=== PATIENT | female | born 1950 | race Caucasian/White ===

== ENCOUNTER 2019-08-13 14:26 | Outpatient (CLI) | payer MEDICARE ==
[~2019-08-13 14:26] MED LIST: ESTR0.5T PO; MULT-658 PO; TRAZ50TA66 PO
[2019-08-13] MEDS ORDERED: CHOL10003 PO (15:01)
== END 2019-08-13 23:59 | disposition home or self-care (01) ==
LOC: STAR 14:26
PROVIDERS: ATTEND Obstetrics & Gynecology Female Pelvic Medicine and Reconstructive Surgery
DX: Z01.818 Encounter for other preprocedural examination (principal); N81.10 Cystocele, unspecified
CPT/HCPCS: 93005

== ENCOUNTER 2019-08-23 08:47 | Day surgery (SDC) | payer MEDICARE ==
[~2019-08-23] VITALS: Ht 170.2 cm; Wt 69.8 kg
[~2019-08-23 08:47] MED LIST changes: +BUPIVACAINE/PF-EPI 0.25% 1:200K ONE; +CHOL10003 PO; +NEOMY/POLYMYXIN B GU IRR. 1 ML ONE
[2019-08-23] MEDS ORDERED: LACTATED RINGERS 1,000 ML IV SCH (09:00)
[2019-08-23 09:11] VITALS: BP 124/54
[2019-08-23] MEDS ORDERED: ACETAMINOPHEN 500 MG TABLET PO ONE ×3 (09:30→10:30)
[2019-08-23] MEDS ORDERED: GABAPENTIN 300 MG CAPSULE PO ONE (10:30)
[2019-08-23] MEDS ORDERED: FENTANYL PF 100 MCG/2ML ONE ×2 (12:30→14:12)
[2019-08-23] MEDS ORDERED: MIDAZOLAM 1 MG/ML, 2ML ONE (12:30)
[2019-08-23] MEDS ORDERED: PROPOFOL 10 MG/ML, 20ML ONE (12:30)
[2019-08-23] MEDS ORDERED: LIDOCAINE-MPF 2% ,5ML ONE (12:31)
[2019-08-23] MEDS ORDERED: CEFAZOLIN 1,000 MG ONE ×2 (12:31)
[2019-08-23] MEDS ORDERED: ROCURONIUM 10MG/ML,5ML ONE (12:31)
[2019-08-23] MEDS ORDERED: ONDANSETRON 2MG/ML, 2ML ONE (12:31)
[2019-08-23] MEDS ORDERED: DEXAMETHASONE 4 MG/ML, 1ML ONE ×2 (12:31)
[2019-08-23] MEDS ORDERED: LORazepam 2 MG/ML, 1ML IVPush PRN (13:00)
[2019-08-23] MEDS ORDERED: ONDANSETRON 2MG/ML, 2ML IV PRN (13:00)
[2019-08-23] MEDS ORDERED: MEPERIDINE/PF 25MG/ML,1ML IVPush PRN (13:00)
[2019-08-23] MEDS ORDERED: OXYcodone 5 MG/5 ML ORAL.SOL UDC PO PRN (13:00)
[2019-08-23] MEDS ORDERED: hydrALAzine 20 MG/ML, 1ML IV PRN (13:00)
[2019-08-23] MEDS ORDERED: LABETALOL 5MG/ML, 20ML IV PRN (13:00)
[2019-08-23] MEDS ORDERED: HYDROmorphone 2 MG/ML, 1ML IVPush PRN (13:00)
[2019-08-23] MEDS ORDERED: SUCCINYLCHOLINE 20 MG/ML, 10ML ONE (13:07)
[2019-08-23] MEDS ORDERED: OXYcodone 5 MG/5 ML ORAL.SOL UDC ONE (14:12)
[2019-08-23] MEDS: FENTANYL PF 100 MCG/2ML IV PRN ×3 (14:15→14:40)
[2019-08-23] MEDS ORDERED: HYDROmorphone 1 MG/ML, 1ML INJ ONE (14:41)
== END 2019-08-23 16:55 | disposition home or self-care (01) ==
LOC: OUT 08:47
PROVIDERS: ATTEND Obstetrics & Gynecology Female Pelvic Medicine and Reconstructive Surgery
DX: N81.89 Other female genital prolapse (principal); N39.46 Mixed incontinence; N81.11 Cystocele, midline; N81.6 Rectocele; N81.5 Vaginal enterocele; R10.2 Pelvic and perineal pain; Z79.899 Other long term (current) drug therapy; Z88.2 Allergy status to sulfonamides; Z90.710 Acquired absence of both cervix and uterus; Z98.890 Other specified postprocedural states
CPT/HCPCS: 57265; 57282; 57288; C1771; J0330; J0690; J1100; J1170; J2250; J2405; J2704; J3010; J7120

== ENCOUNTER → 2020-10-04 | Outpatient (CLI) | payer MEDICARE ==
[~2020-10-04] MED LIST changes: +ALEN70TA77 PO; -BUPIVACAINE/PF-EPI 0.25% 1:200K ONE; +ESTR30CR VG; +MIRA25TA PO; -NEOMY/POLYMYXIN B GU IRR. 1 ML ONE
== END | disposition home or self-care (01) ==
LOC: STAR 10:22
PROVIDERS: ATTEND Obstetrics & Gynecology Female Pelvic Medicine and Reconstructive Surgery
DX: Z01.812 Encounter for preprocedural laboratory examination (principal); Z20.822 Contact with and (suspected) exposure to COVID-19; N39.3 Stress incontinence (female) (male); R10.2 Pelvic and perineal pain; N81.10 Cystocele, unspecified; N81.6 Rectocele
CPT/HCPCS: 93005; U0003

== ENCOUNTER 2020-10-09 09:58 | Day surgery (SDC) | payer MEDICARE ==
[~2020-10-09] VITALS: Ht 170.2 cm; Wt 66.1 kg
[~2020-10-09 09:58] MED LIST changes: +BUPIVACAINE/PF 0.25% ONE; +EPINEPHRINE 1 MG/ML, 1ML ONE; +NEOMY/POLYMYXIN B GU IRR. 1 ML ONE
[2020-10-09 10:33] VITALS: BP 123/80
[2020-10-09] MEDS ORDERED: CHLORHEXIDINE 15 ML UDC PO ONE (11:00)
[2020-10-09] MEDS ORDERED: LACTATED RINGERS 1,000 ML IV SCH (11:00)
[2020-10-09] MEDS ORDERED: FENTANYL PF 250 MCG/5ML ONE (11:47)
[2020-10-09] MEDS ORDERED: DEXAMETHASONE 4 MG/ML, 1ML ONE ×2 (11:50→12:14)
[2020-10-09] MEDS ORDERED: ROCURONIUM 10MG/ML,5ML ONE (11:50)
[2020-10-09] MEDS ORDERED: SUCCINYLCHOLINE 20 MG/ML, 10ML ONE (11:50)
[2020-10-09] MEDS ORDERED: PROPOFOL 10 MG/ML, 20ML ONE (11:50)
[2020-10-09] MEDS ORDERED: CEFAZOLIN 1,000 MG ONE ×2 (12:13→12:14)
[2020-10-09] MEDS ORDERED: NEOSTIGMINE 1 MG/ML, 10ML ONE (12:29)
[2020-10-09] MEDS ORDERED: hydrALAzine 20 MG/ML, 1ML IV PRN (12:30)
[2020-10-09] MEDS ORDERED: DIAZEPAM 5 MG/ML, 2ML IVPush PRN (12:30)
[2020-10-09] MEDS ORDERED: EPHEDRINE 50 MG/ML, 1ML IVPush PRN (12:30)
[2020-10-09] MEDS ORDERED: PROMETHAZINE 12.5 MG SUPP PR PRN (12:30)
[2020-10-09] MEDS ORDERED: LABETALOL 5MG/ML, 20ML IV PRN (12:30)
[2020-10-09] MEDS ORDERED: MEPERIDINE/PF 25MG/0.5ML IVPush PRN (12:30)
[2020-10-09] MEDS ORDERED: MIDAZOLAM 1 MG/ML, 2ML IV PRN (12:30)
[2020-10-09] MEDS ORDERED: ALBUTEROL SULFATE 2.5 MG/3 ML NPPB PRN (12:30)
[2020-10-09] MEDS ORDERED: GLYCOPYRROLATE 0.2MG/1ML, 5ML ONE (12:30)
[2020-10-09] MEDS ORDERED: ACETAMINOPHEN 325 MG TABLET PO PRN (12:30)
[2020-10-09] MEDS ORDERED: ONDANSETRON 2MG/ML, 2ML ONE (12:30)
[2020-10-09] MEDS ORDERED: OXYcodone 5 MG/5 ML ORAL.SOL UDC PO PRN (12:30)
[2020-10-09] MEDS ORDERED: ONDANSETRON 2MG/ML, 2ML IVPush PRN (12:30)
[2020-10-09] MEDS ORDERED: HYDROmorphone 1 MG/ML, 1ML INJ IVPush PRN (12:30)
[2020-10-09] MEDS ORDERED: DIPHENHYDRAMINE 50 MG/ML, 1ML IVPush PRN ×2 (12:30)
[2020-10-09] MEDS ORDERED: PROMETHAZINE 25 MG/ML, 1ML IVPush PRN (12:30)
[2020-10-09] MEDS ORDERED: FENTANYL PF 100 MCG/2ML ONE (13:12)
[2020-10-09] MEDS: FENTANYL PF 100 MCG/2ML IV PRN ×2 (13:14→13:20)
[2020-10-09] MEDS ORDERED: ACETAMINOPHEN 650 MG/20.3 ML UDC ONE (13:17)
[2020-10-09] MEDS ORDERED: OXYcodone 5 MG/5 ML ORAL.SOL UDC ONE (13:18)
[2020-10-09] MEDS ORDERED: MEPERIDINE/PF 25MG/ML,1ML ONE (13:24)
[2020-10-09] MEDS ORDERED: KETOROLAC 30 MG/1 ML ONE (13:36)
[2020-10-09] MEDS ORDERED: KETOROLAC 30 MG/1 ML IVPush PRN ×2 (14:00→14:34)
== END 2020-10-09 15:30 | disposition home or self-care (01) ==
LOC: OUT 09:58
PROVIDERS: ATTEND Obstetrics & Gynecology Female Pelvic Medicine and Reconstructive Surgery
DX: N81.89 Other female genital prolapse (principal); N39.46 Mixed incontinence; N81.11 Cystocele, midline; N81.6 Rectocele; N81.5 Vaginal enterocele; M81.0 Age-related osteoporosis without current pathological fracture; Z79.899 Other long term (current) drug therapy; Z88.2 Allergy status to sulfonamides; Z90.710 Acquired absence of both cervix and uterus; Z98.890 Other specified postprocedural states
CPT/HCPCS: 57265; 57282; 57288; 57295; C1771; J0171; J0330; J0690; J1100; J1885; J2175; J2405; J2704; J2710; J3010; J7120